=== PATIENT | male | born 1980 | race Caucasian/White ===

== ENCOUNTER 2019-10-28 22:06 | Emergency (ER) | payer SELFPAY ==
[2019-10-28 22:56] VITALS: BP 149/84; PULSE 62; RESP 16; TEMP 36.6; O2SAT 98; BMI 28.5
[2019-10-28 23:05] VITALS: BP 162/81; PULSE 62; RESP 18; TEMP 36.8; O2SAT 99
--- NOTE | 2019-10-28 23:10 | W.ED.BACK ---
HPI - Back Pain/Injury General: Chief Complaint: Back Pain/Injury Stated Complaint: back pain Time Seen by Provider: 10/28/19 22:51 History of Present Illness: HPI Narrative: Patient with worsening sciatica left leg over the last couple weeks. Was seen at [facility] last night. Received steroid and Toradol shot and given prescription for muscle relaxers. Patient still has sciatica going down the left leg to his foot. MD elicited complaint: back pain Pertinent past history: prior back pain Onset (ago): day(s) Timing: constant and progressively worsening Severity: moderate Similar Symptoms Previously: Yes Quality: aching Location: lumbar spine Radiation: left leg below the knee Exacerbating factors: movement and lifting Context: while lifting and turning/twisting Associated symptoms: Reports no associated symptoms; Deny abdominal pain, chills, fever(s), nausea or vomiting Review of Systems Const: Denies: fever, chills or body aches Eyes: Denies: change in vision or blurry vision ENMT: Denies: throat pain or nasal congestion Card: Denies: chest pain or shortness of breath on exertion Resp: Denies: shortness of breath, productive cough or non-productive cough GI: Denies: abdominal pain, nausea or vomiting : Denies: difficulty urinating Musc: Reports: back pain; Denies: extremity pain Skin/Breast: Denies: rash Neuro: Denies: headache Psych: Denies: anxiety or depression Jose L/Lymph: Denies: easy bruising PFSH ED PFSH: Social History Smoking and tobacco status: current every day smoker Physical Exam Const: COMMON NORMALS: no apparent distress, average body habitus and oriented x3 HENMT: COMMON NORMALS: normocephalic HEAD & SCALP: normal to inspection and normocephalic FACE & SINUS: normal facial exam Eye: COMMON NORMALS: conjunctivae normal GENERAL EYE: normal appearance of both eyes CONJUNCTIVA: Yes conjunctivae normal Neck/C-Spine: COMMON NORMALS: no JVD Chest: COMMONS NORMALS: inspection of chest normal Resp: COMMON NORMALS: normal respiratory effort and clear to auscultation bilaterally AUSCULTATION: clear to auscultation bilaterally Cardio: COMMON NORMALS: no JVD, regular rate and regular rhythm RATE: regular rate RHYTHM: regular rhythm GI: COMMON NORMALS: normal to inspection, nondistended, normoactive bowel sounds Extremity: COMMON NORMALS: normal to inspection and full ROM OTHER: Straight leg lift positive for pain on the left side at 10 degrees has good range of motion of the left lower extremity is able to stand on leg. Neuro: COMMON NORMALS: oriented x3 Course Vital Signs: Vital signs: Vital Signs Temperature 98.2 F 10/28/19 23:05 Pulse Rate 62 10/28/19 23:05 Respiratory Rate 18 10/28/19 23:05 Blood Pressure 162/81 10/28/19 23:05 Pulse Oximetry 99 10/28/19 23:05 Discharge Plan Discharge Patient Disposition: Home, Self-Care Clinical Impression: Sciatica Qualifiers: Laterality: left Qualified Code(s): M54.32 - Sciatica, left side Condition: Stable Prescriptions: New hydrocodone-acetaminophen 5-325 mg tablet 1 tab PO Q8H PRN (Reason: pain) Qty: 10 RF: 0 prednisone 10 mg tablet 10 mg PO DAILY PRN (Reason: pain (scale score 7-10)) Qty: 14 RF: 0 Discharge Orders: Discharge Order (Routine); Ordered 10/28/19 Ordered By: Wallace Cr Referrals: Wallace Cr, ARCHITECTURAL TECHNICIAN [Emergency Provider] - Discharge Diet: Advance as tolerated Discharge Activity: Limit activity as instructed Patient Instructions: Sciatica (ED) Activity Restrictions/Additional Instructions: Follow-up with medical provider as directed. Take medications as prescribed. Return to the ER or your medical provider if condition worsens. Please read and understand discharge instructions. If any questions ask please. Light duty x2 weeks. No lifting over 10 to 15 pounds. Follow-up with a primary [facility] clinic. Discussed need for MRI. Coding Level of Care Code ED Printer Repair Technician for Fernando Yeager
[2019-10-28 23:19] VITALS: BP 144/78; PULSE 102; RESP 20; O2SAT 98
[2019-10-28] MEDS: HYDROcodone-acetaminophen 7.5-325 mg Tablet 1 TAB PO (23:19)
[2019-10-28] MEDS: predniSONE 20 mg Tablet 60 MG PO (23:19)
== END 2019-10-28 23:22 | disposition home or self-care (01) ==
PROVIDERS: Emergency Provider Nurse Practitioner Family; Family Provider Nurse Practitioner Family
DX: M54.42 Lumbago with sciatica, left side (principal); F17.200 Nicotine dependence, unspecified, uncomplicated
CPT/HCPCS: 99281; 99283; J7512

== ENCOUNTER → 2019-11-16 11:30 | Outpatient (BNVA) | payer SELFPAY | PROVIDERS: Family Provider Nurse Practitioner Family; Visit Provider Nurse Practitioner Family | DX: M54.42 Lumbago with sciatica, left side (principal) | CPT/HCPCS: 81003 ==